=== PATIENT | female | born 1995 | race Caucasian/White ===

== ENCOUNTER 2018-12-17 09:18 | Outpatient (CLI) | payer OTHER | END 2018-12-17 17:00 | disposition home or self-care (01) | LOC: MRI 09:18 | DX: E03.8 Other specified hypothyroidism (principal); D35.2 Benign neoplasm of pituitary gland | CPT/HCPCS: 70552 ==

== ENCOUNTER → 2018-12-17 09:21 | Outpatient (CLI) | payer OTHER | END | disposition home or self-care (01) | LOC: LAB 09:21 | DX: N20.0 Calculus of kidney (principal) ==